=== PATIENT | female | born 1960 | race Caucasian/White ===

== ENCOUNTER 2018-01-02 16:45 | Outpatient (CLI) | END 2018-01-02 16:46 | disposition home or self-care (01) | LOC: AMBL 16:45 | PROVIDERS: ATTEND Emergency Medicine | DX: M25.512 Pain in left shoulder (principal); M25.532 Pain in left wrist; W01.0XXA Fall on same level from slipping, tripping and stumbling without subsequent striking against object, initial encounter; Y92.59 Other trade areas as the place of occurrence of the external cause ==